=== PATIENT | female | born 1970 | race Caucasian/White ===

== ENCOUNTER 2019-04-14 10:12 | Emergency (ER) | payer SELFPAY ==
[2019-04-14] MEDS: IBUPROFEN 800 MG TAB PO (10:48)
[2019-04-14] MEDS: ONDANSETRON 4 MG INJ IV (11:01)
[2019-04-14] MEDS: SOD CHLORIDE 0.9% 1,000 ML IV (11:01)
[2019-04-14] MEDS: morphine 4 MG/ML VIAL IV (11:01)
== END 2019-04-14 12:49 | disposition home or self-care (01) ==
LOC: FTE 10:12
DX: M54.2 Cervicalgia (principal); M54.5 Low back pain; R94.02 Abnormal brain scan
CPT/HCPCS: 70450; 72100; 72125; 96374; 96375; 99285-25